=== PATIENT | female | born 1995 | race Caucasian/White ===

== ENCOUNTER 2019-08-16 22:58 | Emergency (ER) | payer MEDICAID ==
[~2019-08-16] VITALS: Ht 149.9 cm; Wt 44.2 kg
[2019-08-16 23:03] VITALS: BP 104/67
[2019-08-16] MEDS ORDERED: penicillin G benzathine 1.2 million unit/2ml syringe IM ONE (23:30)
[2019-08-16] MEDS ORDERED: CefTRIAXone 250MG IM Kit w/LIDOcaine IM ONE (23:30)
[2019-08-16] MEDS ORDERED: azithromycin 250mg tablet PO ONE (23:30)
[2019-08-16] MEDS ORDERED: metroNIDAZOLE 500mg tablet PO ONE (23:30)
--- NOTE | 2019-08-17 00:06 | NUR ---
pt dc ready once labs drawn, meds given and test resulted
[2019-08-17 00:37] LABS: URINE HCG NEGATIVE (NEG)
[2019-08-17 00:40] LABS: CLARITY,URINE CLOUDY (Clear); COLOR,URINE YELLOW (Yellow); GLUCOSE, URINE NEGATIVE (Neg); KETONES,URINE NEGATIVE (Neg); LEUKOCYTE ESTERASE ,URINE MODERATE (Neg); NITRITES, URINE POSITIVE (Neg); OCCULT BLOOD,URINE MODERATE (Neg); PH,URINE 5.5 (4.8-8.0); PROTEIN,URINE 30 mg/dl (Neg)
[2019-08-17 00:48] LABS: UA COLLECTION TYPE VOIDED
[2019-08-17 00:51] LABS: WBC,URINE TNTC /HPF (0-4)
[2019-08-17 00:52] LABS: BACTERIA,URINE 2+ /HPF (Neg); MUCUS STRANDS FEW /LPF (Neg); RBC,URINE NONE SEEN /HPF (0-2); SQUAMOUS EPITHELIAL CELL,UR FEW /LPF (FEW)
[2019-08-17 00:53] LABS: CAL OXALATE CRYSTALS 1+ /HPF (NEGATIVE); TRANSITIONAL EPI CELLS,URINE FEW /HPF
[2019-08-18 11:15] LABS: RPR Reactive (Non Reactive)
--- NOTE | 2019-08-20 10:11 | NUR ---
PT CALLED X2, PHONE BUSY EACH TIME. UNABLE TO LEAVE MS.
== END 2019-08-17 00:30 | disposition home or self-care (01) ==
LOC: ER 22:59
DX: A64 Unspecified sexually transmitted disease (principal); R30.0 Dysuria; R06.02 Shortness of breath; F17.200 Nicotine dependence, unspecified, uncomplicated; F15.90 Other stimulant use, unspecified, uncomplicated; Z60.2 Problems related to living alone
CPT/HCPCS: 36415; 81001; 81025; 86592; 87077; 87088; 87186; 87210; 87491; 87591; 96372; 99284; J0561; J0696; Q0112; J3490

== ENCOUNTER 2022-01-26 03:55 | Emergency (ER) | payer MEDICAID ==
[~2022-01-26] VITALS: Ht 177.8 cm; Wt 44.2 kg
[2022-01-26 05:13] LABS: BASOPHILS % (AUTO) 0.2 % (0-1); EOSINOPHILS # (AUTO) 0.2 X10'3 (0-0.9); EOSINOPHILS % (AUTO) 1.4 % (0-6); HEMATOCRIT 37.8 % (35.0-45.0); HEMOGLOBIN 12.7 g/dl (12.0-16.0); LYMPHOCYTES # (AUTO) 3.6 X10'3 (1.1-4.8); LYMPHOCYTES % (AUTO) 29.9 % (21-51); MEAN CORPUSCULAR HEMOGLOBIN 30.5 PG (27.0-31.0); MEAN CORPUSCULAR HGB CONC 33.5 g/dL (33.0-36.5); MEAN CORPUSCULAR VOLUME 91.2 FL (78-98); MONOCYTES # (AUTO) 1.2 X10'3 (0-0.9); MONOCYTES % (AUTO) 10.4 % (2-12); NEUTROPHILS % (AUTO) 58.1 % (42-75); PLATELET COUNT 258 X10'3 (140-440); RED BLOOD COUNT 4.15 X10'6 (4.20-5.60); RED CELL DISTRIBUTION WIDTH 12.8 % (11.5-14.5)
[2022-01-26 05:45] LABS: ALANINE AMINOTRANSFERASE 43 U/L (12-78); ALBUMIN 4.3 G/DL (3.4-5.0); ALKALINE PHOSPHATASE 92 IU/L (46-116); ANION GAP 14 (8-16); ASPARTATE AMINO TRANSFERASE 52 U/L (10-37); BILIRUBIN,TOTAL 1.1 MG/DL (0.1-1.0); BLOOD UREA NITROGEN 17 MG/DL (7-18); BUN/CREATININE RATIO 25.4 (6.6-38.0); CALCIUM 9.3 MG/DL (8.5-10.1); CHLORIDE 104 MMOL/L (99-107); CREATININE 0.67 MG/DL (0.40-0.90); GLUCOSE 86 MG/DL (70-104); POTASSIUM 3.4 MMOL/L (3.5-5.1); SODIUM 140 MMOL/L (135-145); TOTAL CARBON DIOXIDE 22.4 MMOL/L (24-32); TOTAL PROTEIN 8.8 G/DL (6.4-8.2); eGFR > 90 ML/MIN
[2022-01-26 05:55] LABS: ETHANOL < 0.010 GM/DL (0.0-0.010)
--- NOTE | 2022-01-26 06:50 | NUR ---
PT HAD AN OUTBURST, AND INSISTED ON LEAVING BECAUSE SHE WANTED TO SEE "THE [employer]". STAFF ATTEMPTED TO REORIENT PT, AND DIRECT HER BACK TO HER ROOM. PT SCREAMED AND CUSSED AT STAFF. PT WAS DIRECTED BACK TO HER ROOM, AND HER ROOM WAS SECURED PER HER HOLD STATUS.
[2022-01-26 12:14] LABS: URINE HCG NEGATIVE (NEG)
[2022-01-26 12:19] LABS: URINE AMPHETAMINE SCREEN POSITIVE (Neg); URINE BARBITUATE SCREEN NEGATIVE (Neg); URINE BENZODIAZEPINES SCREEN NEGATIVE (Neg); URINE CANNABINOID SCREEN POSITIVE (Neg); URINE COCAINE SCREEN NEGATIVE (Neg); URINE METHADONE SCREEN NEGATIVE (Neg); URINE OPIATE SCREEN NEGATIVE (Neg); URINE PHENCYCLIDINE SCREEN NEGATIVE (Neg)
--- NOTE | 2022-01-26 13:18 | NUR ---
PATIENT PACKET FAXED TO [facility]
--- NOTE | 2022-01-26 14:20 | NUR ---
Received patient to OF bed #23. Pt ambulated independently from main ED with staff. Pt presents tearful and afraid. Pt moved from [place] about three years ago. Pt has a grandmother here in [place], but states "she dosen't talk to me." Pt is homeless and has no support system. Pt denies suicidal/homicidal ideation. She endorses A/VH, but nothing currently. Pt states she hasn't taken any medication for about five months, unsure of past home medications.
[2022-01-26] MEDS ORDERED: NO HOME MEDS (14:49)
--- NOTE | 2022-01-26 17:00 | NUR ---
[facility] reported they have not received packet, attempted to refax at 1700.
--- NOTE | 2022-01-26 17:14 | NUR ---
Pt resting peacefully on right side, respirations even and unlabored.
[2022-01-26] MEDS ORDERED: OLANZapine 5mg rapidly disint. tablet PO ONE (19:40)
--- NOTE | 2022-01-26 20:13 | NUR ---
One to one with the patient who appeared fearful and distracted by internal stimuli. She reports auditory hallucinations when he sleeps. She stated they tell her various things like not to drink the water. She denied that the voices tell her to kill herself. She denies suicidal or homicidal thoughts. She was guarded and gave very poor eye contact. She stated that she was released from the [facility] two days ago. She is unable to verbalize a plan for food, long-term or clothing. She was unable to state when she last ate. Her hair was extremely dirty and greasey. Negative for head lice. Dr. Mcnamara made aware of patient fearfulness and psychosis and order received.
--- NOTE | 2022-01-26 20:17 | NUR ---
Nurse to nurse with [facility], Rodrigo.
--- NOTE | 2022-01-26 21:43 | NUR ---
The patient appears to be sleeping
--- NOTE | 2022-01-26 21:53 | NUR ---
Nurse to nurse with [facility], [place].
[2022-01-26 22:06] LABS: CLARITY,URINE SLIGHTLY CLOUDY (Clear); COLOR,URINE YELLOW (Yellow); GLUCOSE, URINE NEGATIVE (Neg); KETONES,URINE 40 mg/dl (Neg); LEUKOCYTE ESTERASE ,URINE NEGATIVE (Neg); NITRITES, URINE NEGATIVE (Neg); OCCULT BLOOD,URINE NEGATIVE (Neg); PROTEIN,URINE TRACE mg/dl (Neg)
[2022-01-26 22:11] LABS: UA COLLECTION TYPE VOIDED
[2022-01-26 22:15] LABS: BACTERIA,URINE 1+ /HPF (Neg); MUCUS STRANDS FEW /LPF (Neg); SQUAMOUS EPITHELIAL CELL,UR MODERATE /LPF (FEW)
[2022-01-26 22:16] LABS: CAL OXALATE CRYSTALS 1+ /HPF (NEGATIVE)
--- NOTE | 2022-01-26 22:22 | NUR ---
The patient has been accepted at [facility], [place] and will be transported tomorrow
--- NOTE | 2022-01-26 23:04 | NUR ---
The patient is laying on her bed but is restless
--- NOTE | 2022-01-27 01:09 | NUR ---
The patient appears to be sleeping
--- NOTE | 2022-01-27 02:36 | NUR ---
The patient appears to be sleeping
--- NOTE | 2022-01-27 03:30 | NUR ---
The patient appears to be sleeping
--- NOTE | 2022-01-27 05:01 | NUR ---
The patient appears to be sleeping
--- NOTE | 2022-01-27 07:00 | NUR ---
Pt appears to be sleeping, respirations even and unlabored.
--- NOTE | 2022-01-27 08:59 | NUR ---
Pt back to sleep after eating her breakfast. Pt is quiet and calm. Pt will be picked up around 1015 and transported to [facility].
--- NOTE | 2022-01-27 10:23 | NUR ---
DISCHARGE NOTE Patient left unit at 1022. Pt was escorted to lobby with [facility] drivers' cash clerk and security. Pt is being transferred to [facility]. Pt was A&x3. Pt was given weather appropriate clothing. Only personal belongings pt had was her flip flops, given to drivers' cash clerk.
[2022-01-27 10:32] VITALS: BP 108/57
== END 2022-01-27 10:22 | disposition still patient (30) ==
LOC: ER 03:55
DX: F79 Unspecified intellectual disabilities (principal); Z20.822 Contact with and (suspected) exposure to COVID-19; F15.90 Other stimulant use, unspecified, uncomplicated; Z60.2 Problems related to living alone
CPT/HCPCS: 36415; 80053; 80305; 80320; 81001; 81025; 84443; 85025; 87088; 87811; 99285

== ENCOUNTER 2022-01-30 09:23 | Emergency (ER) | payer MEDICAID ==
[~2022-01-30] VITALS: Ht 154.9 cm; Wt 63.0 kg
[~2022-01-30 09:23] MED LIST: NO HOME MEDS
[2022-01-30 09:25] VITALS: BP 125/88
[2022-01-30] MEDS ORDERED: OMEP20TA43 PO (10:51)
[2022-01-30 10:52] LABS: CLARITY,URINE CLEAR (Clear); COLOR,URINE YELLOW (Yellow); GLUCOSE, URINE NEGATIVE (Neg); KETONES,URINE 15 mg/dl (Neg); LEUKOCYTE ESTERASE ,URINE NEGATIVE (Neg); NITRITES, URINE NEGATIVE (Neg); OCCULT BLOOD,URINE NEGATIVE (Neg); PROTEIN,URINE NEGATIVE (Neg); UROBILINOGEN,URINE 0.2 E.U/dL (0.2-1.0)
[2022-01-30 10:52] LABS: BASOPHILS % (AUTO) 0.2 % (0-1); EOSINOPHILS % (AUTO) 0.1 % (0-6); HEMATOCRIT 39.3 % (35.0-45.0); HEMOGLOBIN 13.4 g/dl (12.0-16.0); LYMPHOCYTES # (AUTO) 3.4 X10'3 (1.1-4.8); LYMPHOCYTES % (AUTO) 30.8 % (21-51); MEAN CORPUSCULAR HEMOGLOBIN 31.1 PG (27.0-31.0); MEAN CORPUSCULAR HGB CONC 34.2 g/dL (33.0-36.5); MEAN PLATELET VOLUME 9.3 FL (7.4-10.4); MONOCYTES # (AUTO) 0.8 X10'3 (0-0.9); MONOCYTES % (AUTO) 7.3 % (2-12); NEUTROPHILS # (AUTO) 6.7 X10'3 (1.8-7.7); NEUTROPHILS % (AUTO) 61.6 % (42-75); PLATELET COUNT 287 X10'3 (140-440); RED BLOOD COUNT 4.31 X10'6 (4.20-5.60); WHITE BLOOD COUNT 10.9 X10'3 (4.5-11.0)
[2022-01-30 10:53] LABS: UA COLLECTION TYPE CLN CATCH MIDSTREAM
[2022-01-30 10:55] LABS: ALBUMIN 4.3 G/DL (3.4-5.0); ANION GAP 11 (8-16); BLOOD UREA NITROGEN 10 MG/DL (7-18); BUN/CREATININE RATIO 15.4 (6.6-38.0); CALCIUM 9.4 MG/DL (8.5-10.1); CHLORIDE 104 MMOL/L (99-107); CREATININE 0.65 MG/DL (0.40-0.90); GLUCOSE 93 MG/DL (70-104); POTASSIUM 3.5 MMOL/L (3.5-5.1); SODIUM 141 MMOL/L (135-145); TOTAL CARBON DIOXIDE 26.3 MMOL/L (24-32); eGFR > 90 ML/MIN
== END 2022-01-30 12:21 | disposition home or self-care (01) ==
LOC: ER 09:24
DX: J02.9 Acute pharyngitis, unspecified (principal); K14.6 Glossodynia; F31.9 Bipolar disorder, unspecified; F20.9 Schizophrenia, unspecified; F15.90 Other stimulant use, unspecified, uncomplicated; Z60.2 Problems related to living alone; Z59.00 Homelessness unspecified; Z79.899 Other long term (current) drug therapy
CPT/HCPCS: 36415; 80048; 81003; 85025; 99283